=== PATIENT | female | born 1990 | race Caucasian/White ===

== ENCOUNTER 2021-08-05 05:45 | Emergency (ER) | payer SELFPAY ==
[~2021-08-05] VITALS: Ht 154.9 cm; Wt 51.7 kg
[2021-08-05 05:56] VITALS: BP 118/70
--- NOTE | 2021-08-05 06:05 | NUR ---
PT TAKEN TO BED 3
--- NOTE | 2021-08-05 06:10 | NUR ---
31 Y.O. F C/O nausea, vomiting, fever x 3 days. Patient reported, had nausea, vomiting, fever, and bodyache. NO FEVER IN TRIAGE. PAIN THAT RADIATES FROM RLQ TO BACK 09/23. PT TOOK AMOXICILLIN AND IBUPROFEN AT HOME LAST NIGHT. NO PAIN WHEN URINATING. VITALS WNL, STEADY GAIT, A&OX4, NO SOB NOR CHEST PAIN. NKA PMHx: DENIES
--- NOTE | 2021-08-05 06:14 | NUR ---
DR. DOZIER AT BEDSIDE EVALUATING PT.
--- NOTE | 2021-08-05 06:15 | NUR ---
RECONCILIATION COORDINATOR [facility] # [id number] AND RECONCILIATION COORDINATOR [facility] #[id number]
[2021-08-05 06:45] LABS: BASOPHILS % (AUTO) 0.4 % (0.0-2.0); EOSINOPHILS # (AUTO) 0.3 K/uL (0-0.4); EOSINOPHILS % (AUTO) 2.9 % (0.0-4.0); HEMATOCRIT 38.6 % (36-48); HEMOGLOBIN 12.4 g/dL (12.0-16.0); LYMPHOCYTES # (AUTO) 2.7 K/uL (2.5-16.5); LYMPHOCYTES % (AUTO) 24.2 % (20.5-51.1); MEAN CORPUSCULAR HEMOGLOBIN 27 pg (27-31); MEAN CORPUSCULAR HGB CONC 32 g/dL (33-37); MEAN CORPUSCULAR VOLUME 85.1 fL (80-94); MONOCYTES # (AUTO) 0.9 K/uL (0.8-1.0); MONOCYTES % (AUTO) 8.1 % (1.7-9.3); NEUTROPHILS # (AUTO) 7.3 K/uL (1.8-7.7); NEUTROPHILS % (AUTO) 64.4 % (42.2-75.2); PLATELET COUNT (AUTO) 341 K/uL (140-450); RED BLOOD CELL COUNT(AUTO) 4.54 MIL/uL (4.20-5.40); RED CELL DISTRIBUTION WIDTH 12.9 % (11.6-13.7); WHITE BLOOD COUNT (AUTO) 11.3 K/uL (4.8-10.8)
[2021-08-05] MEDS: KETOROLAC 30 MG/ML VIAL IM ONE (06:46)
[2021-08-05] MEDS: ONDANSETRON 4 MG ODT PO ONE (06:47)
[2021-08-05 06:56] LABS: APPEARANCE,URINE HAZY (CLEAR); BILIRUBIN,URINE NEGATIVE (NEGATIVE); BLOOD, URINE TRACE-I (NEGATIVE); COLOR,URINE YELLOW (YELLOW); LEUKOCYTE ESTERASE ,URINE NEGATIVE (NEGATIVE); NITRITE, URINE NEGATIVE (NEGATIVE); UGLUCOSE NEGATIVE (NEGATIVE)
[2021-08-05 07:04] LABS: ALBUMIN 3.6 g/dL (3.4-5.0); CARBON DIOXIDE 28.3 mmol/L (21-32); CREATININE 0.8 mg/dL (0.6-1.3); POTASSIUM 4.3 mmol/L (3.5-5.1); TOTAL BILIRUBIN 0.2 mg/dL (0.0-1.0)
--- NOTE | 2021-08-05 07:15 | NUR ---
Pt report given to NIKITA. Transfer of care at this time.
[2021-08-05 07:40] LABS: CALCIUM OXALATE CRYSTALS,UR None Seen /HPF (None Seen); COARSE GRANULAR CASTS,URINE None Seen /LPF (None Seen); FINE GRANULAR CASTS,URINE None Seen /LPF (None Seen); HYALINE CASTS, URINE None Seen /LPF (None Seen); OTHER CASTS, URINE None Seen /LPF (None Seen); OTHER CRYSTALS,URINE None Seen /HPF (None Seen); RBC,URINE 0-5 /HPF (0-5); RED BLOOD CELL CASTS,URINE None Seen /LPF (None Seen); TRICHOMONAS,URINE None Seen /HPF (None Seen); TRIPLE PHOSPHATE CRYSTAL,UR None Seen /HPF (None Seen); URIC ACID CRYSTALS,URINE None Seen /HPF (None Seen); URINE AMORPHOUS URATE None Seen /HPF (None Seen); WAXY CASTS,URINE None Seen /LPF (None Seen); YEAST,URINE None Seen /HPF (None Seen)
[2021-08-05] MEDS ORDERED: ONDA-188 PO (08:09)
[2021-08-05] MEDS ORDERED: LEVO750T51 PO (08:09)
[2021-08-05] MEDS ORDERED: IBUP-1842 PO (08:09)
[2021-08-05] MEDS ORDERED: LIDOCAINE MPF 1% 5 ML ONE (08:23)
[2021-08-05] MEDS ORDERED: cefTRIAXone 1,000 MG VIAL ONE (08:23)
[2021-08-05] MEDS: cefTRIAXone 1,000 MG in LIDOCAINE MPF 1% 2.1 ML IM ONE (08:26)
[2021-08-05 08:43] VITALS: BP 112/73
--- NOTE | 2021-08-05 08:45 | NUR ---
Patient discharged with v/s stable. Written and verbal after care instructions given and explained. Patient alert, oriented and verbalized understanding of instructions. Ambulatory with steady gait. All questions addressed prior to discharge. ID band removed. Patient advised to follow up with PMD. Rx of IBUPROFEN, OLEVOFLOOXACIN, ONDANSETRON given. Opportunity to ask questions provided and answered.
--- NOTE | 2021-08-05 08:46 | NUR ---
Chart checked and completed. The patient's care was reviewed and supervised by Kathia Hope RN.
== END 2021-08-05 08:45 | disposition home or self-care (01) ==
LOC: MED 05:45
DX: N10 Acute pyelonephritis (principal); R11.10 Vomiting, unspecified; Z90.49 Acquired absence of other specified parts of digestive tract; Z79.899 Other long term (current) drug therapy
CPT/HCPCS: 36415; 76705; 80053; 81001; 81025; 83690; 85025; 87086; 96372; 99285; J0696; J1885; J2001; Q0092; Q0162

== ENCOUNTER 2021-09-04 07:07 | Emergency (ER) | payer SELFPAY ==
[~2021-09-04] VITALS: Ht 154.9 cm; Wt 55.8 kg
[~2021-09-04 07:07] MED LIST: IBUP-1842 PO; LEVO750T51 PO; ONDA-188 PO
[2021-09-04 07:18] VITALS: BP 128/96
--- NOTE | 2021-09-04 07:24 | NUR ---
PT AMBULATED TO BATHROOM WITH STEADY GAIT
--- NOTE | 2021-09-04 07:30 | NUR ---
Pat gillis in [facility] - 09/04/21 at 0730 by MNAFSANEHMD PT AMBULATED AT BEDSIDE
--- NOTE | 2021-09-04 07:30 | NUR ---
PT AMBULATED AT BEDSIDE
[2021-09-04] MEDS ORDERED: KETOROLAC 30 MG/ML VIAL IM ONE (07:50)
--- NOTE | 2021-09-04 07:52 | NUR ---
31 y/o female from home, pt presents to ed with c/o right flank pain, dysuria, radiates to right abd area for 1 month. pt was given medications from a previous visit, no relief. denies nausea, vomiting, diarrhea. skin is pink/warm/dry. a&o x4, greenlandic speaking with even and steady gait. lungs clear bl, heart rate even and regular. pt denies hematuria, urinary frequency or retention, or anyone sick in the household with the same symptoms. pt denies any fever, cp, sob, or cough at this time. pt states pain is 7/10 at this time. patient positioned for comfort. hob elevated. bed down. ermd made aware of pt. pmh: thyroid disease nka med: denies
[2021-09-04 08:02] LABS: BASOPHILS # (AUTO) 0.1 K/uL (0.00-0.22); BASOPHILS % (AUTO) 0.6 % (0.0-2.0); EOSINOPHILS # (AUTO) 0.4 K/uL (0-0.4); EOSINOPHILS % (AUTO) 3.8 % (0.0-4.0); HEMATOCRIT 38.5 % (36-48); HEMOGLOBIN 12.5 g/dL (12.0-16.0); LYMPHOCYTES # (AUTO) 2.7 K/uL (2.5-16.5); LYMPHOCYTES % (AUTO) 28.1 % (20.5-51.1); MEAN CORPUSCULAR HEMOGLOBIN 28 pg (27-31); MEAN CORPUSCULAR HGB CONC 32 g/dL (33-37); MEAN CORPUSCULAR VOLUME 85.1 fL (80-94); MONOCYTES # (AUTO) 0.7 K/uL (0.8-1.0); MONOCYTES % (AUTO) 7.2 % (1.7-9.3); NEUTROPHILS # (AUTO) 5.8 K/uL (1.8-7.7); NEUTROPHILS % (AUTO) 60.3 % (42.2-75.2); PLATELET COUNT (AUTO) 234 K/uL (140-450); RED BLOOD CELL COUNT(AUTO) 4.53 MIL/uL (4.20-5.40); RED CELL DISTRIBUTION WIDTH 12.8 % (11.6-13.7); WHITE BLOOD COUNT (AUTO) 9.6 K/uL (4.8-10.8)
--- NOTE | 2021-09-04 08:13 | NUR ---
pt taken to ct via wheelchair at this time
[2021-09-04 08:15] LABS: ALBUMIN 3.7 g/dL (3.4-5.0); ANION GAP 14.6 (8-16); CARBON DIOXIDE 25.4 mmol/L (21-32); CREATININE 0.6 mg/dL (0.6-1.3); TOTAL BILIRUBIN 0.2 mg/dL (0.0-1.0)
--- NOTE | 2021-09-04 08:22 | NUR ---
pt returned from ct at this time
[2021-09-04] MEDS ORDERED: IBUP-2213 PO (09:44)
[2021-09-04 10:15] VITALS: BP 120/78
== END 2021-09-04 10:16 | disposition home or self-care (01) ==
LOC: MED 07:07
DX: R10.31 Right lower quadrant pain (principal); E03.9 Hypothyroidism, unspecified
CPT/HCPCS: 36415; 74176; 80053; 81002; 81025; 85025; 96372; 99284; J1885